=== PATIENT | male | born 1985 | race Hispanic/Latino ===

== ENCOUNTER 2020-07-04 02:15 | Emergency (ER) | payer SELFPAY ==
[2020-07-04] MEDS ORDERED: ACETAMINOPHEN 500 MG TAB ONE (04:10)
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
[2020-07-04 07:16] VITALS: TEMP 98
[2020-07-04 07:18] VITALS: O2SAT 98
[2020-07-04 07:19] VITALS: BP 131/75
--- NOTE | 2020-07-04 13:02 | RAD REPORT ---
EXAM DESCRIPTION: RAD - Hand Right 3 View - 07/04/2020 4:50 am CLINICAL HISTORY: PAIN COMPARISON: No comparisons FINDINGS: No acute fracture or dislocation seen.
--- NOTE | 2020-07-04 13:06 | RAD REPORT ---
EXAM DESCRIPTION: RAD - Wrist Right 3 View - 07/04/2020 4:44 am CLINICAL HISTORY: PAIN Pain COMPARISON: No comparisons FINDINGS: No fracture or dislocation seen. No foreign body or other soft tissue abnormality. IMPRESSION: Negative examination.
--- NOTE | 2020-07-04 13:07 | RAD REPORT ---
EXAM DESCRIPTION: RAD - Shoulder Right 2 View - 07/04/2020 4:44 am CLINICAL HISTORY: PAIN COMPARISON: No comparisons FINDINGS: Mild glenohumeral osteoarthritic changes are present. Subacromial outlet is mildly narrowe d suggesting underlying rotator cuff pathology. No acute fracture or dislocation seen.
--- NOTE | 2020-07-05 07:41 | RAD REPORT ---
EXAM DESCRIPTION: CT of the head without contrast CLINICAL HISTORY: TRAUMA COMPARISON: None available TECHNIQUE: Axial CT of the head obtained from the skull apex to the skull base without contrast. Thi s exam was performed according to our departmental dose-optimization program, which includes automate d exposure control, adjustment of the mA and/or kV according to patient size and/or use of iterative reconstruction technique. FINDINGS: No acute intracranial hemorrhage identified. No mass, mass effect, shift of the midline, a bnormal extra-axial fluid collection or CT evidence of acute ischemic change identified. The ventricu lar system is unremarkable. No acute abnormalities of the supratentorial white matter, basal gangli a, cerebellum, or brainstem. The visualized paranasal sinuses and the mastoid air cells are relatively well aerated. No skull fr acture identified. Visualized orbits and globes are unremarkable. IMPRESSION: 1. No acute intracranial abnormality identified. Electronically signed by: Geoff Alarcon 07/04/2020 4:57 AM TRAVEL JOURNALIST Due to temporary technical issues with the PACS/Fluency reporting system, reports are being signed by the in house radiologists without review as a courtesy to insure prompt reporting. The interpreting radiologist is fully responsible for the content of the report.
== END 2020-07-04 07:08 | disposition left against medical advice (07) ==
LOC: ER 02:15
DX: S00.83XA Contusion of other part of head, initial encounter (principal); S40.011A Contusion of right shoulder, initial encounter; S60.221A Contusion of right hand, initial encounter; Y00.XXXA Assault by blunt object, initial encounter; Y93.89 Activity, other specified; Y92.89 Other specified places as the place of occurrence of the external cause; I10 Essential (primary) hypertension
CPT/HCPCS: 70450; 99284